=== PATIENT | male | born 2000 | race Caucasian/White ===

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

== ENCOUNTER 2021-07-13 21:59 | Emergency (ER) | payer OTHER, MEDICAID, SELFPAY ==
[2021-07-13 22:00] VITALS: BP 145/86; PULSE 86; RESP 17; TEMP 36.7; O2SAT 97; BMI 25.8
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
--- NOTE | 2021-07-13 22:27 | RAD_ITS ---
STUDY: X-RAY - UNILATERAL RIBS ( RIGHT ) WITH CHEST REASON FOR EXAM: Male, 20 years old. Trauma TECHNIQUE - RIBS: 4 view(s) of the ribs. TECHNIQUE - CHEST: Single frontal view COMPARISON: None. FINDINGS - RIBS: Normal visualized ribs without a demonstrated fracture. FINDINGS - CHEST: The lungs are clear and expanded. There is no demonstrated pleural abnormality. Normal size heart. Normal mediastinum and melly. Normal visualized pulmonary arteries. Normal visualized aortic arch and descending thoracic aorta. Slight thoracolumbar levoscoliosis which may be positional. Normal visualized ribs, clavicles, and shoulders. Excreted contrast noted within the intrarenal collecting systems, without hydronephrosis. RAD/Ribs Uni Min 3V w/PA Chest IMPRESSION: RIBS: Negative x-ray examination of the ribs. No acute right rib fracture. CHEST: Negative x-ray examination of the chest. No acute cardiopulmonary disease process identified. Electronically Signed: Ronn Shukla MD at 23:25 EDT ,
--- NOTE | 2021-07-13 22:28 | CT_ITS ---
EXAM: CT ABDOMEN AND PELVIS WITH INTRAVENOUS CONTRAST CLINICAL INDICATION: Abdominal pain TECHNIQUE: Helically acquired images were obtained of the abdomen and pelvis with intravenous contrast. DLP: 507.67 mGy-cm and CTDI: 9.[address] exam was performed using one or more of the following dose reduction techniques: automated exposure control, adjustment of the mA and/or kV according to patient size, and/or use of iterative reconstruction technique. This report was created using AccuRev report generation technology. CONTRAST: IV 100mL Isovue-300 COMPARISON: None. FINDINGS: LOWER THORAX: Unremarkable. Lung bases are clear. No cardiomegaly. No significant pericardial effusion. ABDOMEN: LIVER: Unremarkable. Homogeneous. No focal mass. GALLBLADDER AND BILE DUCTS: Gallbladder is partially contracted. No gallstones, wall thickening or pericholecystic stranding. No biliary ductal dilatation. PANCREAS: Unremarkable. No focal cystic or solid mass. SPLEEN: Unremarkable. Normal size without focal cystic or solid mass. ADRENALS: Unremarkable. No nodules. KIDNEYS AND URETERS: Unremarkable. Normal renal size and position. No hydronephrosis. STOMACH AND BOWEL: Stomach is filled with ingested particulate matter. No gastric mural thickening. No stomach or bowel distention. No focal inflammatory change. PELVIS: APPENDIX: No evidence of acute appendicitis. BLADDER: Unremarkable. REPRODUCTIVE: Unremarkable as visualized. No mass. ABDOMEN and PELVIS: INTRAPERITONEAL SPACE: Unremarkable. No ascites or other fluid collection. No free air. 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 No suspicious lytic or blastic abnormality. SOFT TISSUES: Unremarkable. No discrete abdominal or pelvic wall hernia. VASCULATURE: A calcified phlebolith is noted near the distal right ureter but no obstructing ureteral stone is seen. Abdominal aorta is non-dilated. LYMPH NODES: Unremarkable. No enlarged lymph nodes. CT/Abdomen/Pelvis W IV Cont ONLY IMPRESSION: No acute findings in the abdomen or pelvis. Normal appendix. Electronically Signed: Ronn Shukla MD at 23:16 EDT ,
[2021-07-13 22:38] VITALS: BP 124/62; PULSE 94; RESP 16; O2SAT 100
[2021-07-13 22:47] LABS: Absolute Lymphocyte Count 2.01 X10^3/uL (0.83-4.51); Absolute Neutrophil Count 8.6 X10^3/uL (2.0-7.7); Basophil# 0.04 X10^3/uL; Basophil% 0.3 % (0-1); Hematocrit 42.8 % (40-54); Hemoglobin 14.7 g/dL (13.0-16.5); Lymphocyte # 2.01 X10^3/ul (0.83-4.51); Mean Corp Hgb Conc 34.3 g/dL (32-36); Mean Corpuscular Volume 81.5 fL (80-94); Mean Platelet Vol. 9.1 fl (6.2-12.0); Monocyte# 1.09 X10^3/uL; Monocyte% 9.2 % (0-10); NRBC Flagged by Analyzer 0 % (0-5); Neutrophil # 8.63 X10^3/uL (2.7-7.7); Neutrophil % 73.2 % (47-70); Platelet Count 249 K/mm3 (150-450); RBC Distribution Width CV 11.9 % (11.6-14.6); RBC Distribution Width SD 34.7 fl (35.1-43.9); Red Blood Count 5.25 M/mm3 (4.6-6.2); White Blood Count 11.8 K/mm3 (4.4-11.0)
--- NOTE | 2021-07-13 22:50 | RAD_ITS ---
STUDY: X-RAY - CERVICAL SPINE REASON FOR EXAM: Male, 20 years old. Injury/Pain TECHNIQUE: 3 view(s) of the cervical spine were obtained. COMPARISON: Soft tissue neck radiographs of 04/15/2019 FINDINGS: Normal anterior atlantoaxial articulation. Normal odontoid process. Normal cervical lordosis. Normal vertebral bodies and endplates. Normal disc space heights. No compression fracture or subluxation. No facet dislocation. The soft tissue structures are unremarkable. No precervical soft tissue swelling. Visualized upper ribs are intact. No apical pneumothorax. RAD/Cerv Spine 2 or 3 Views IMPRESSION: Negative x-ray examination of the visualized cervical spine. No acute fracture or subluxation. Electronically Signed: Ronn Shukla MD at 23:23 EDT ,
[2021-07-13 23:07] LABS: ALB/GLOB Ratio 1.2 RATIO (0.9-2.4); AST(SGOT) 15 U/L (15-37); Alanine Aminotransfer ALT/SGPT 27 U/L (16-61); Albumin, Serum 4.1 g/dL (3.2-5.0); Alkaline Phosphatase 64 U/L (45-117); Anion Gap 8 (5-15); BUN 8 mg/dL (7-18); BUN/Creat Ratio 6.2 RATIO (10-20); Calcium,Total 9.5 mg/dL (8.5-10.1); Chloride 104 mmol/L (98-107); EST Glomerular Filtration Rate 75 mL/min (>60); Est Glom Filt Rate - Afr Amer 91 mL/min (>60); Estimated Creatinine Clearance 88.42 ml/min; Globulin 3.3 g/dL (2.2-4.2); Glucose 89 mg/dL (74-106); Potassium 3.6 mmol/L (3.5-5.1); Protein, Total 7.4 g/dL (6.4-8.2); Sodium Level 139 mmol/L (136-145)
[2021-07-14 00:24] LABS: Mucous, Urine 0 SEEN /hpf (<or=2+); Red Blood Cells-Urine 0 SEEN /hpf (0-5); Squamous Epithelial Cells - UA 0 SEEN /hpf (0-5); White Blood Cells 0 SEEN /hpf (0-5)
[2021-07-14 00:36] LABS: Color, Urine Straw (Yellow); Glucose, Dipstick Normal (Normal); Ketone-Dipstick Negative (Negative); Leukocyte Esterase-Dipstick Negative /ul (Negative); Nitrite-Dipstick Negative (Negative); Occult Blood-Urine Negative /ul (Negative); Protein-Dipstick Negative (Negative); Urine Bilirubin Dipstick Negative (Negative); Urine Clarity Clear (Clear); Urine Urobilinogen Normal (Normal); Urine pH 6.5 (5.0 - 8.0)
[2021-07-14 00:46] VITALS: PULSE 77; RESP 16; O2SAT 98
[2021-07-14 00:53] LABS: Bacteria RARE /hpf (None Seen)
== END 2021-07-14 00:46 | disposition home or self-care (01) ==
PROVIDERS: Emergency Provider Emergency Medicine; PCP Pediatrics; Visit Provider Emergency Medicine
DX: S16.1XXA Strain of muscle, fascia and tendon at neck level, initial encounter (principal); S20.211A Contusion of right front wall of thorax, initial encounter; S30.1XXA Contusion of abdominal wall, initial encounter; S20.311A Abrasion of right front wall of thorax, initial encounter; S70.211A Abrasion, right hip, initial encounter; V18.0XXA Pedal cycle driver injured in noncollision transport accident in nontraffic accident, initial encounter; Y93.55 Activity, bike riding; Y99.8 Other external cause status
CPT/HCPCS: 71101; 72040; 74177; 80053; 81001; 85025; 99283; Q9967

== ENCOUNTER 2021-08-16 09:00 | Outpatient (RCR) | payer OTHER, SELFPAY ==
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
--- NOTE | 2021-08-01 10:57 | HP.OTREVAL ---
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 Please see the progress note below for an update on the occupational therapy plan of care! Subjective: pt states he is doing more with his arm but having difficulty with lift of nephew- pt states he has returned to dressing and bathing IND- pt states he continues to struggle with IADLs as yard work and changing oil in his car. Objective/Function: left programs assistant 115# a increase from 60#. left lateral pinch 10# ( pt compensating with increase wrist ext). left tripod pinch 4#. left tip pinch unable. 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 pt reports the feeling of a discomfort at elbow with elbow flexion and extension -. pt is performing all digit strengthening as able -PAD/DAB. therapist using k-tape to medial elbow to assist in limiting the snapping sensation pt is getting with elbow flex/ext movements- Plan Visits in this POC: return to for further assessment and tx plan Plan: Strengthening, joint protection/ergonomics Goals - Goals Patient Goals: Regain Mobility, Regain Strength, Decrease Pain, Return to Work, Improve Fine Motor Skills, Use Hand/Wrist/Arm Normally Again, Decrease Tingling/Numbness, Be More Independent in ADLS, Resume Former Household Responsibilities (Cooking,Cleaning,Yard, etc.), Resume Hobbies Goal:100% adherence to protocol: Yes Goal:Daily scar massage when approriate: Yes Goal:ROM equal to unaffected hand: Yes Goal:Manager Supplier/Pinch strength at least 75% of unaffected hand: Yes Goal:No pain with affected hand use: Yes Goal:Full use of affected hand in daily activities including: Yes Goal:Improvement in sensation documented by [place]-Vinicio: Yes Goal:Decrease scar hypersensitivity: Yes Anticipated Interventions Anticipated Interventions: A/AAROM/PROM, Strengthening, Scar Care, Joint Protection/Energy Conservation, Ergonomic Education, Fine Motor Coord/Adrian, Education re Diagnosis, Education re Self Massage Techniques, Home Program Other Interventions: has HEP from [facility], and pt. reports completing every couple hours. pt. demo'd for S/OT. No strengthening til week 4 post op. has a follow up in a couple of weeks with sx doctor. S/OT provided scar massage handout, reviewed, and demonstrated on pt. scar. pt. verbalized understanding. Pt. stated he has orthotics (miguelangel splint) but does not wear it. Please do not hesitate to contact me at [phone] by phone or if you have questions or concerns regarding this new plan of care! Sincerely, Daniela Solorio, OTR/L, CHT
--- NOTE | 2021-08-16 09:09 | HP.OTREVAL ---
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 Please see the progress note below for an update on the occupational therapy plan of care! Subjective: pt arrives to OT states nerve is no staying in place- pt states he noticed it last week and will DrJuan Carlos Today-. pt states he felt it for the first time while he was sitting in his truck he noticed the popping-. pt use of anti claw orthosis about 50% of the time. Objective/Function: pt demo today with a left junior recruiter strength of 95# this is a decrease from August 01 of 115#. lateral pinch 10# (pt compensating with wrist ext). tripod pinch 4# initially pt was unable. 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 pt reports the feeling of a discomfort at elbow with elbow flexion and extension -. pt is performing all digit strengthening as able -PAD/DAB. therapist has using k-tape to medial elbow to assist in limiting the snapping sensation pt is getting with elbow flex/ext movements- Plan Visits in this POC: return to for further assessment and tx plan Plan: isometries of shoulder all plans and biceps/triceps Goals - Goals Patient Goals: Regain Mobility, Regain Strength, Decrease Pain, Return to Work, Improve Fine Motor Skills, Use Hand/Wrist/Arm Normally Again, Decrease Tingling/Numbness, Be More Independent in ADLS, Resume Former Household Responsibilities (Cooking,Cleaning,Yard, etc.), Resume Hobbies Goal:100% adherence to protocol: Yes Goal:Daily scar massage when approriate: Yes Goal:ROM equal to unaffected hand: Yes Goal:Interior Design Principal/Pinch strength at least 75% of unaffected hand: Yes Goal:No pain with affected hand use: Yes Goal:Full use of affected hand in daily activities including: Yes Goal:Improvement in sensation documented by [place]-Vinicio: Yes Goal:Decrease scar hypersensitivity: Yes Anticipated Interventions Anticipated Interventions: A/AAROM/PROM, Strengthening, Scar Care, Joint Protection/Energy Conservation, Ergonomic Education, Fine Motor Coord/Adrian, Education re Diagnosis, Education re Self Massage Techniques, Home Program Other Interventions: has HEP from [facility], and pt. reports completing every couple hours. pt. demo'd for S/OT. No strengthening til week 4 post op. has a follow up in a couple of weeks with sx doctor. S/OT provided scar massage handout, reviewed, and demonstrated on pt. scar. pt. verbalized understanding. Pt. stated he has orthotics (miguelangel splint) but does not wear it. Please do not hesitate to contact me at [phone] by phone or if you have questions or concerns regarding this new plan of care! Sincerely, Daniela Solorio, OTR/L, CHT
--- NOTE | 2021-11-14 13:59 | HP.OTDCSUM ---
It has been my pleasure to treat DHARMESH CHIU under orders from TANYA GRANADOS, for the diagnosis of injury of left ulnar nerve at upper arm level, subsequent encounter for a total of 17 visit(s). Please see the following information for a summary of their discharge status. % Improvement: 70 Objective/Function: pt demo today with a left litigation legal secretary strength of 95# this is a decrease from August 01 of 115#. lateral pinch 10# (pt compensating with wrist ext). tripod pinch 4# initially pt was unable. 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 pt reports the feeling of a discomfort at elbow with elbow flexion and extension -. pt is performing all digit strengthening as able -PAD/DAB. therapist has using k-tape to medial elbow to assist in limiting the snapping sensation pt is getting with elbow flex/ext movements- Patient Goals: Regain Mobility, Regain Strength, Decrease Pain, Return to Work, Improve Fine Motor Skills, Use Hand/Wrist/Arm Normally Again, Decrease Tingling/Numbness, Be More Independent in ADLS, Resume Former Household Responsibilities (Cooking,Cleaning,Yard, etc.), Resume Hobbies Goal:100% adherence to protocol: Yes Goal:Daily scar massage when approriate: Yes Goal:ROM equal to unaffected hand: Yes Goal:Oral And Maxillofacial Surgery Resident/Pinch strength at least 75% of unaffected hand: Yes Goal:No pain with affected hand use: Yes Goal:Full use of affected hand in daily activities including: Yes Goal:Improvement in sensation documented by [place]-Vinicio: Yes Goal:Decrease scar hypersensitivity: Yes Plan: isometries of shoulder all plans and biceps/triceps If there are questions or concerns regarding this patient's occupational therapy, please fell free to call me at [phone]. Thank you for the referral of this patient. Sincerely, Daniela Solorio, OTR/L, CHT
== END 2021-08-16 19:00 | disposition home or self-care (01) ==
LOC: OT 09:00
PROVIDERS: PCP Pediatrics
DX: S44.02XD Injury of ulnar nerve at upper arm level, left arm, subsequent encounter (principal)
CPT/HCPCS: 97110; 97165; 97166; 97530; A4216

== ENCOUNTER 2022-02-14 09:00 | Outpatient (RCR) | payer OTHER, MEDICAID, SELFPAY ==
--- NOTE | 2022-01-31 11:43 | HP.OTEVAL_ITS ---
Patient's Visit Information DHARMESH CHIU is a 21 year old M, referred to Occupational Therapy by TANYA GRANADOS, with a diagnosis of left cubital. Date of Evaluation: 01/31/22 Occupational Therapist: Daniela Solorio, GAIL/Nicolette, CHT - Subjective This 21 year old male was seen for OT eval with dx of left cubital tunnel syndrome. Pt underwent a revision with sub muscular transposition. pt states sx was on Jan.112021. he had surgical splint removed last week and they gave him a wrist brace- he is using as needed. pt arrives today without brace in left arm guarded position. pt states he is happy to be moving forward with his recovery. pt left handed. Works for [employer] - ADLs Eating: Bring food to mouth, Use silverware, Cut food, Drink from glass Comments: he is using right Bathing: Handle washcloth & soap - Pain left UE 3 - ROM Elbow: right 0/145 left -65/110 Forearm: right sup/pron WNL left supination to N pronation WNL Wrist: right wrist WNL left 15/15 - Strength Clinical Documentation Consultant: right 115# left NT Lateral Pinch: right 18# left NT Tripod Pinch: right 16# left NT - Sensation Sensation Comments: denies curretnly but feels tingling in LF at times - Quick DASH-Disab of Arm,Shoulder& Hand Quick DASH Score: 73.3325 - Goals Goal:100% adherence to protocol: Yes Comment: ulnar nerve transposition Goal:Daily scar massage when approriate: Yes Goal:ROM equal to unaffected hand: Yes Goal:Clinical Documentation Consultant/Pinch strength at least 75% of unaffected hand: Yes Goal:Full use of affected hand in daily activities including: Yes Goal:Decrease scar hypersensitivity: Yes - Rehabilitation General Assessment: pt arrives 3 weeks s/p from sub muscular ulnar nerve transposition. pt demo with newly healing structures, limited ROM and precautions with strengthening. this limits pts ind. with ADLs and IADLs at this time. pt would benefit from skilled OT services 1-2xweek fro 8 weeks to return pts strength and ROM to return pt to PLOF. Today therapist removed sutures, review of ROM ex for shoulder, elbow, forearm wrist and digits. Rehabilitation Potential: Good - Anticipated Interventions A/AAROM/PROM, Strengthening, Scar Care, Triggerpoint Release, Modalities, Joint Protection/Energy Conservation, Ergonomic Education, Fine Motor Coord/Adrian, Education re assistive Equipment, Education re Diagnosis, Home Program - Visit Plan Frequency: 1-2x /Week Duration: 2 Months TEXT: Thank you for the opportunity to evaluate your patient. For Medicare and Medicare HMO plans, please review the plan of care and approve it. It will need to be FAXED BACK to us at [phone] for Medicare purposes. Please let me know if there are questions or concerns regarding this plan of care. Physician Signature: Date:____
--- NOTE | 2022-02-14 09:35 | OTREVAL_ITS ---
TANYA GRANADOS, It has been my pleasure to treat DHARMESH CHIU over the last 3 visits for left cubital. Please see the progress note below for an update on the occupational therapy plan of care! Subjective: pt arrives 4 weeks and 6 days s/p Ulnar nerve transposition revision. pt states yesterday at week 4 and 5 days his arm started spasming and then he felt a pop at is incision site. ( pt states he tried ice and heat) pt reports he did not have his brace on because he was not doing anything. pt arrives to day with pain at 3-10 and swelling at incision site. Objective/Function: -30125 with feeling of tightness and discomfort. Plan Frequency: 1-2x /Week Duration: 2 Months Plan: pt to call office and see if she can see him earlier Goals - Goals Patient Goals: Regain Mobility, Use Hand/Wrist/Arm Normally Again, Be More Independent in ADLS Goal:100% adherence to protocol: Yes Goal:Daily scar massage when approriate: Yes Goal:ROM equal to unaffected hand: Yes Goal:Flooring Machine Operator/Pinch strength at least 75% of unaffected hand: Yes Goal:Full use of affected hand in daily activities including: Yes Goal:Decrease scar hypersensitivity: Yes Anticipated Interventions Anticipated Interventions: A/AAROM/PROM, Strengthening, Scar Care, Triggerpoint Release, Modalities, Joint Protection/Energy Conservation, Ergonomic Education, Fine Motor Coord/Adrian, Education re assistive Equipment, Education re Diagnosis, Home Program Please do not hesitate to contact me at [phone] by phone or if you have questions or concerns regarding this new plan of care! Sincerely, Daniela Solorio, OTR/L, CHT
--- NOTE | 2022-05-30 15:06 | HP.OTDCSUM ---
It has been my pleasure to treat DHARMESH CHIU under orders from TANYA GRANADOS, for the diagnosis of left cubital for a total of 3 visit(s). Please see the following information for a summary of their discharge status. pt arrives 4 weeks and 6 days s/p Ulnar nerve transposition revision. pt states yesterday at week 4 and 5 days his arm started spamming and then he felt a pop at is incision site. ( pt states he tried ice and heat) pt reports he did not have his brace on because he was not doing anything. pt arrives to day with pain at 3-10 and swelling at incision site. [ End ] Objective/Function: -30/125 with feeling of tightness and discomfort. pt feels like his nerve is snapping again. therapist advised for pt to return to Dr. Patient Goals: Regain Mobility, Use Hand/Wrist/Arm Normally Again, Be More Independent in ADLS Goal:100% adherence to protocol: Yes Goal:Daily scar massage when approriate: Yes Goal:ROM equal to unaffected hand: Yes Goal:Butcher Head/Pinch strength at least 75% of unaffected hand: Yes Goal:Full use of affected hand in daily activities including: Yes Goal:Decrease scar hypersensitivity: Yes Plan: pt to call office and see if she can see him earlier - pt last seen on 02/14/22 and at this time due to time lapse in services pt d.c. If there are questions or concerns regarding this patient's occupational therapy, please fell free to call me at [phone]. Thank you for the referral of this patient. Sincerely, Daniela Solorio, OTR/L, CHT
== END 2022-02-14 19:00 | disposition home or self-care (01) ==
LOC: OT 09:00
PROVIDERS: PCP Pediatrics
DX: G56.22 Lesion of ulnar nerve, left upper limb (principal)
CPT/HCPCS: 97140; 97166

== ENCOUNTER 2022-08-13 09:00 | Outpatient (RCR) | payer MEDICAID, OTHER, SELFPAY ==
--- NOTE | 2022-07-12 14:46 | HP.OTEVAL ---
Patient's Visit Information DHARMESH CHIU is a 21 year old M, referred to Occupational Therapy by TANYA GRANADOS, with a diagnosis of left distal triceps tendon instability. Date of Evaluation: 07/12/22 Occupational Therapist: Daniela Solorio, GAIL/Nicolette, CHT - Subjective This 21 year old male was seen for OT eval with dx. of joint derangement Upper Arm. pt underwent ulnar nerve decompression at elbow -22 modifier scar revision -and left triceps tendon stabilization and partial excision/ left triceps lateralization versus partial excision with revision decompression of ulnar nerve. pt states the drJuan Carlos found tear with diagnostic US.sx was on 06/19/22. pt is left hand dominate. pt using hinged elbow brace at night. 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 - ADLs Comments: at this time pt is limited with daily tasks as he is left handed. attempting all things heavy with right UE. but light tasks with left - Pain left elbow 2 Pain Intensity Range: 7, 8 - ROM Elbow: right 0/145 left -40/120 Forearm: right/left WNL - Strength Trim Mechanic: right 120 left NT Lateral Pinch: right 20 left NT Tripod Pinch: right 20#left NT Strength Comments: will test at week 4 s/p - Sensation Thumb: right 2.83 left 2.83 Index: right 2.83 left 2.83 Middle: right 2.83 left 2.83 Ring: right 2.83 left 2.83 Little: right 2.83 left 3.22 Other Location: ulnar side of palm left hand 3.22 Sensation Comments: tingling ulnar side of left hand - Quick DASH-Disab of Arm,Shoulder& Hand Quick DASH Score: 76.6650 - Goals Goal:100% adherence to protocol: Yes Comment: Dr Craft guidelines Goal:Daily scar massage when approriate: Yes Goal:ROM equal to unaffected hand: Yes Goal:Trim Mechanic/Pinch strength at least 75% of unaffected hand: Yes Goal:No pain with affected hand use: Yes Goal:Full use of affected hand in daily activities including: Yes Goal:Improvement in sensation documented by [place]-Vinicio: Yes Goal:Decrease scar hypersensitivity: Yes - Rehabilitation General Assessment: pt arrives 3 weeks 2 days s/p from left elbow distal triceps tendon stabilization and partial excision, left ulnar nerve decompression at elbow-22 modifier scar revision of skin ([id number]). Pt demo with newly healing structures, limited left elbow ROM and weakness. pt demo need for skilled OT services 1-2x week for 6 weeks to return pt to her PLOF. Today therapist removed sutures, reviewed AROM ex. and scar mtg. pt demo understanding and agree to POC. Rehabilitation Potential: Excellent - Anticipated Interventions A/AAROM/PROM, Strengthening, Edema Control, Scar Care, Triggerpoint Release, Wound Care, Orthoses, Joint Protection/Energy Conservation, Ergonomic Education, Sensory Stimulation, Education re assistive Equipment, Education re Diagnosis, Home Program - Visit Plan Frequency: 1-2x /Week Duration: 6 Weeks General Plan: No Force through elbow for 4 weeks. after 4 weeks cleared for heavier tasks (Non-repetitive). Ok to strengthen in 4 weeks. Brace for heavier tasks 2 weeks including night time. Suture removal week of 07/09/22. TEXT: Thank you for the opportunity to evaluate your patient. For Medicare and Medicare HMO plans, please review the plan of care and approve it. It will need to be FAXED BACK to us at [phone] for Medicare purposes. Please let me know if there are questions or concerns regarding this plan of care. Physician Signature: Date:
--- NOTE | 2022-08-13 09:32 | OTREVAL_ITS ---
Re-Evaluation Intro: CATA MURCIA, It has been my pleasure to treat DHARMESH CHIU over the last 6 visits for left distal triceps tendon instability. Please see the progress note below for an update on the occupational therapy plan of care! Subjective Subjective: pt arrives 7 weeks 6 days s/p from triceps lateralization and ulnar nerve transposition. Going back to on Saturday. Objective Objective/Function: left elbow at beginning of session -4/131 0/140 end of session Ag Equipment Field Service Technician: right 120#, left 96# Lateral Pinch: right 22# left 18# Tripod Pinch: right 20# left 14# Plan Plan Frequency: 1-2x /Week Duration: 6 Weeks Visits in this POC: 6 weeks (1-2x week) Plan: cont to follow order as able Goals Goals Patient Goals: Regain Strength, Decrease Pain, Use Hand/Wrist/Arm Normally Again and Decrease Tingling/Numbness Goal:100% adherence to protocol: Yes Goal:Daily scar massage when approriate: Yes Goal:ROM equal to unaffected hand: Yes Goal:Ag Equipment Field Service Technician/Pinch strength at least 75% of unaffected hand: Yes Goal:No pain with affected hand use: Yes Goal:Full use of affected hand in daily activities including work: Yes Goal:Improvement in sensation documented by [place]-Vinicio monofiliaments: Yes Goal:Decrease scar hypersensitivity: Yes Anticipated Interventions Anticipated Interventions Anticipated Interventions: A/AAROM/PROM, Strengthening, Edema Control, Scar Care, Triggerpoint Release, Wound Care, Orthoses, Joint Protection/Energy Conservation, Ergonomic Education, Sensory Stimulation, Education re assistive E quipment, Education re Diagnosis and Home Program Re-Evaluation Ending Re-evaluation ending: Please do not hesitate to contact me at [phone] by phone or if you have questions or concerns regarding this new plan of care! Sincerely, Daniela Solorio, OTR/L, CHT
--- NOTE | 2022-08-13 09:34 | OTREVAL_ITS ---
Re-Evaluation Intro: CATA MURCIA, It has been my pleasure to treat DHARMESH CHIU over the last 6 visits for left distal triceps tendon instability. Please see the progress note below for an update on the occupational therapy plan of care! Subjective Subjective: pt arrives 7 weeks 6 days s/p from triceps lateralization and ulnar nerve transposition. Going back to on Saturday. Objective Objective/Function: left elbow at beginning of session -4/131 0/140 end of session Public Accountant: right 120#, left 96# Lateral Pinch: right 22# left 18# Tripod Pinch: right 20# left 14# Plan Plan Frequency: 1-2x /Week Duration: 6 Weeks Visits in this POC: 6 weeks (1-2x week) Plan: cont to follow order as able Goals Goals Patient Goals: Regain Strength, Decrease Pain, Use Hand/Wrist/Arm Normally Again and Decrease Tingling/Numbness Goal:100% adherence to protocol: Yes Goal:Daily scar massage when approriate: Yes Goal:ROM equal to unaffected hand: Yes Goal:Public Accountant/Pinch strength at least 75% of unaffected hand: Yes Goal:No pain with affected hand use: Yes Goal:Full use of affected hand in daily activities including work: Yes Goal:Improvement in sensation documented by [place]-Vinicio monofiliaments: Yes Goal:Decrease scar hypersensitivity: Yes Anticipated Interventions Anticipated Interventions Anticipated Interventions: A/AAROM/PROM, Strengthening, Edema Control, Scar Care, Triggerpoint Release, Wound Care, Orthoses, Joint Protection/Energy Conservation, Ergonomic Education, Sensory Stimulation, Education re assistive E quipment, Education re Diagnosis and Home Program Re-Evaluation Ending Re-evaluation ending: Please do not hesitate to contact me at [phone] by phone or if you have questions or concerns regarding this new plan of care! Sincerely, Daniela Solorio, OTR/L, CHT
--- NOTE | 2023-01-17 12:49 | HP.OT.NRP ---
Patient Information Patient Information: DHARMESH CHIU was seen in my office for initial evaluation on 07/12/22. The following Plan of Care was established for this patient: POC Established Initial Frequency: 1-2x /Week Initial Duration: 6 Weeks Plan: cont to follow order as able Anticipated Interventions Anticipated Interventions: A/AAROM/PROM, Strengthening, Edema Control, Scar Care, Triggerpoint Release, Wound Care, Orthoses, Joint Protection/Energy Conservation, Ergonomic Education, Sensory Stimulation, Education re assistive Equipment, Education re Diagnosis and Home Program Last Seen Last Seen: This patient was last seen in our office 08/13/22. Pertinent comments regarding their Occupational therapy will appear below: left elbow at beginning of session -4/131 0/140 end of session Yard Motor Operator: right 120#, left 96# Lateral Pinch: right 22# left 18# Tripod Pinch: right 20# left 14# measurements are from last apt. pt was seen for 6 OT sessions pt has not scheduled further apts and due to time lapse in services pt is d/c. At this point I will be discontinuing this patient from occupational therapy. I would be happy to see this patient again in the future if found appropriate by the physician. Thank you! Daniela Solorio, OTR/L, CHT
== END 2023-01-24 12:03 | disposition home or self-care (01) ==
LOC: OT 09:00
PROVIDERS: PCP Pediatrics
DX: M24.9 Joint derangement, unspecified (principal); S46.39 Other injury of muscle, fascia and tendon of triceps
CPT/HCPCS: 97110; 97140; 97166; 97530